=== PATIENT | female | born 1980 | race Caucasian/White ===

== ENCOUNTER 2021-10-22 09:50 | Day surgery (SDC) | payer OTHER ==
[~2021-10-22] VITALS: Ht 160 cm; Wt 54.5 kg
[~2021-10-22 09:50] MED LIST: METHIMAZOLE5 MG PO
--- NOTE | 2021-10-22 13:25 | NUR ---
RN TO ROOM DUE TO CALL LIGHT, PT UPDATED ON SURGERY. PT REPORT SHE IS ON HER PERIOD AND ASKED TO PLACE UNDERWEAR BACK ON. PAD AND WHIPES GIVEN AND PT CLEANED HERSELF. OR CHARGE AWARE. PT UP TO BATHROOM AND RETURNED TO BED. CALL LIGHT WITHIN REACH.
--- NOTE | 2021-10-22 16:11 | NUR ---
10/22/21 1611 Marisela Suarez 1606 PATIENT ARRIVES TO PACU RESTING WITH EYES CLOSED. DENIES NEEDS. RESP EVEN AND UNLABORED, MASK AT 6 LITERS.
--- NOTE | 2021-10-22 16:39 | NUR ---
RETURNED TO NO FAMILY HERE.
--- NOTE | 2021-10-27 15:09 | OR ---
[address] [place], [place] [address] Signed DATE OF OPERATION: 10/22/2021 SURGEON: Alex Zepeda MD The patient of Dr. Zepeda. PREOPERATIVE DIAGNOSES: Heavy menstrual bleeding, dysmenorrhea, and adenomyosis. POSTOPERATIVE DIAGNOSES: Heavy menstrual bleeding, dysmenorrhea, and adenomyosis. PROCEDURE: Total laparoscopic hysterectomy with bilateral salpingectomy and cystoscopy. FIELD TECH: Akbar Baer DO ANESTHESIA: General. ESTIMATED BLOOD LOSS: 20 mL. SPECIMEN: Uterus, both fallopian tubes. DRAINS: Sanabria to bladder. PACKING: None. FINDINGS: Normal cervix. Normal size and shape uterus with no adhesions. The left tube had normal fimbria, normal length and no adhesions with evidence of Falope Ring tubal ligation present. Left ovary is normal in size and shape without any evidence of endometriosis or adhesions. The right tube had normal fimbriated end, normal length with evidence of previous Falope ring tubal ligation. No adhesions. Right ovary is Electronically Signed By: ALEX ZEPEDA MD 10/27/21 1509 PATIENT NAME: JEREMIAH STEWARD OPERATIVE REPORT DATE OF : 80 REPORT #: [id number] PHYSICIAN: ALEX ZEPEDA MD PCP: PIA EDOUARD MD REPORT IS CONFIDENTIAL AND NOT TO BE RELEASED WITHOUT AUTHORIZATION [address] [address] Signed normal size and shape without any evidence of endometriosis or adhesions. The rest of the pelvis was free of any endometriosis or adhesions. COMPLICATIONS: None. DESCRIPTION OF PROCEDURE: The patient was brought to the operating room, placed in supine position. After adequate general anesthesia was obtained, she was placed in the dorsal lithotomy position, prepped and draped in usual sterile fashion. A Sanabria catheter was placed in the bladder. A speculum was placed in the vagina and the anterior lip of cervix grasped with an Allis clamp. The cervix was serially dilated and a [place] uterine manipulator carefully inserted through the cervix into the fundus of the uterus. The balloon was filled with sterile water. Allis clamp and weighted speculum were removed and the cervical cap slid up around the cervix and then the vaginal cup slid up against the cervical cap and tightened in place to hold the cervical cap against the cervix. Attention was then drawn to the abdomen. A small infraumbilical skin incision was made with a scalpel after injecting the area with 0.25% Marcaine with epinephrine. Subcutaneous tissue was then dissected with Metzenbaum scissors and the fascia identified, grasped with hemostats, elevated, nicked with Metzenbaum scissors. Retention stitches of 0 Vicryl suture placed above and below the incision. The abdominal musculature and peritoneum were opened with blunt dissection using finger. An S retractor was inserted into the incision and the Deedee cannula and sleeve entered the abdomen under direct visualization. The S retractor was removed. The trocar removed and the balloon on the sleeve was insufflated with air. The outer sleeve was slid down and attached just at the level of the skin and the two retention stitches attached to the outer sleeve. Carbon dioxide was used as distending medium. Laparoscope with video attachment entered the abdomen under direct visualization. The above findings were noted. On the left side, approximately 10 cm lateral to the midline, the abdominal wall was transilluminated to avoid any vessels and the skin injected with 0.25% Marcaine with epinephrine and then a small skin incision made with a scalpel. A 5 mm bladed trocar and sleeve entered the abdomen under direct visualization. The trocar was removed and the balloon of the sleeve filled with air. The trocar was removed and blunt grasper inserted. On the right side again approximately 10 cm lateral to the midline and just below the level of the umbilicus, the anterior abdominal wall was transilluminated, skin injected with 0.25% Marcaine with epinephrine and then a skin incision made with a scalpel. A Veress needle with expandable sleeve was then inserted into the abdomen under direct visualization. The Veress needle was removed and an expandable trocar with sleeve inserted through the expandable sleeve into the uterus under direct visualization. The trocar was removed and blunt grasper inserted. The above findings Electronically Signed By: ALEX ZEPEDA MD 10/27/21 1509 PATIENT NAME: JREEMIAH STEWARD OPERATIVE REPORT DATE OF : 80 REPORT #: [id number] PHYSICIAN: ALEX ZEPEDA MD PCP: PIA EDOUARD MD REPORT IS CONFIDENTIAL AND NOT TO BE RELEASED WITHOUT AUTHORIZATION [facility] [address] [place] [id number] Signed were noted. LigaSure bipolar [place] forceps were used for the dissection. Both fallopian tubes were removed by cauterizing and cutting along the mesosalpinx down the length of the tube to the area of the previous tubal ligation. Two tubes were then brought out through the right lateral port. The utero-ovarian ligaments were cauterized on each side in several places and then cut. On the left side, the round ligament was cauterized in several places and cut. The upper pedicle cauterized and cut and then the anterior and posterior leaves of the broad ligament individually cauterized and cut down to the cervical cap and along the cervical cap to the midline anterior and posterior. The exposed uterine vessels were then cauterized in several places and cut at the edge of the cervical cap which could be seen through the vaginal wall. The paracervical tissue was cleared off so that just the vaginal wall remained on the left side. On the right side, the round ligament was cauterized in several places and cut. Upper broad ligament cauterized and cut and then the individual leaves of the broad ligament cauterized and cut down towards the cervical cap joining the previous dissection in the midline anteriorly and posteriorly. The uterine vessels were then exposed and they were cauterized in several places and cut at the level of the cervical cap. The paracervical tissue was cauterized and cut again at the level of the cervical cap cleaning the vaginal wall of any further vessels. Sonicision was then brought in the operating field and placed through the laparoscope and the vaginal mucosa in the posterior cul-de-sac opened in the groove of the cervical cap using the Sonicision. The dissection was then taken posterior to anterior on the left side and then posterior to anterior on the right side meeting anteriorly in the midline, this removed the cervix and uterus from the vagina. Uterus was easily removed by removing the VCare uterine manipulator and then a glove filled sponge placed in the vagina, so that the abdomen could be re-insufflated. The pelvis was irrigated, suctioned, examined and noted to have good hemostasis, so the cuff was closed using the EndoStitch with barbed suture. Each stitch was placed from posterior to anterior starting at the right uterosacral ligament. The 1st bite through the posterior vaginal wall and then through the loop in the end of the barbed suture. The stitch was then placed through the anterior vaginal mucosa. This was continued across individually incorporating the posterior and then the anterior edges of the vaginal mucosa, making sure to incorporate the vaginal mucosa. This was taken all the way across until reaching the left uterosacral ligament where then the stitch was taken back more superficially towards the midline. The remaining suture was cut at the vaginal wall and the entire pelvis then irrigated, suctioned, examined and noted to have good hemostasis. All instruments were removed. The gas allowed to escape and the final sleeve removed. The infraumbilical fascial incision was closed using running stitch of 0 Vicryl suture. The two retention stitches were tied together for further support and the three skin incisions closed using subcuticular stitches of 4-0 Vicryl suture. The Sanabria catheter was removed from the bladder and then cystoscope with 70-degree lens was placed in the urethra and entered the bladder under direct visualization. Sterile water was used as distending medium and the bladder including the dome, both side simeon Electronically Signed By: ALEX ZEPEDA MD 10/27/21 1509 PATIENT NAME: JEREMIAH STEWARD OPERATIVE REPORT DATE OF : 80 REPORT #: [id number] PHYSICIAN: ALEX ZEPEDA MD PCP: PIA EDOUARD MD REPORT IS CONFIDENTIAL AND NOT TO BE RELEASED WITHOUT AUTHORIZATION [facility] [address] [place], [place] [address] Signed carefully examined showed no defects, no puckering, no suture. The ureteral orifices were identified and both sides showed good jets of urine coming into the bladder and the trigone also showed no defects, sutures or puckering. So, the bladder was drained and the cystoscope removed. Sanabria catheter was placed back in the bladder and the balloon filled with water. The patient tolerated the procedure well, went to recovery room in good condition. The sponge, needle, and instrument count were correct at the end of the procedure. The uterus with both fallopian tubes sent to Pathology for identification. Alex Zepeda MD MJB/MODL /[id number] cc: Pia Edouard MD Copies: PIA EDOUARD MD ~ Electronically Signed By: ALEX ZEPEDA MD 10/27/21 1509 PATIENT NAME: JEREMIAH STEWARD OPERATIVE REPORT DATE OF : 80 REPORT #: [id number] PHYSICIAN: ALEX ZEPEDA MD PCP: PIA EDOUARD MD REPORT IS CONFIDENTIAL AND NOT TO BE RELEASED WITHOUT AUTHORIZATION
--- NOTE | 2021-10-28 05:59 | PATH ---
[facility] [address] [place], [place] [address] Signed SPECIMEN(S): A UTERUS, CERVIX, BILATERAL TUBES SPECIMEN SOURCE: A. UTERUS, CERVIX, BILATERAL TUBES CLINICAL HISTORY: Adenomyosis, dysmenorrhea. FINAL PATHOLOGIC DIAGNOSIS: Uterus, cervix and bilateral fallopian tubes, hysterectomy and bilateral salpingectomy: - Cervix: - Benign squamous epithelium and endocervix. - Negative for dysplasia. - Endomyometrium: - Benign secretory endometrium with serosal adhesions. - Negative for hyperplasia and atypia. - Bilateral fallopian tubes: - Benign fimbria and fallopian tubes with paratubal cysts. DDF:hank:C2NR MICROSCOPIC EXAMINATION: Histologic sections of all submitted blocks are examined by light microscopy. These findings, together with the gross examination, support the pathologic diagnosis. GROSS DESCRIPTION: The specimen, labeled "HC, A," and designated on the requisition "uterus with cervix bilateral tubes," is received in formalin and consists of a uterus with attached cervix and 2 detached fimbriated fallopian tube segments. The two fimbriated fallopian tube segments are mccall-white purple and undesignated. The first fimbriated fallopian tubes segment is 2.2 cm long, 0.6 centimeters in diameter, and the lumen is occluded by the white, 0.4 cm diameter, 0.3 cm long beadlike device. Additionally the tube has multiple clear fluid-filled, smooth inner walled, paratubal cystic structures from less than 0.1 up to 0.3 cm in greatest dimension. An additional discrete mass/lesion is not grossly identified. The second tube is inked blue, 3.2 cm long, 0.6 cm in diameter, has a patent lumen, and multiple clear fluid-filled, smooth inner walled, paratubal cystic structures from less than 0.1 up to 0.3 PATIENT NAME: JEREMIAH STEWARD PATHOLOGY DATE OF : 80 REPORT #: [id number] PHYSICIAN: JS PATHOLOGY PCP: PIA CHAIDEZ MD REPORT IS CONFIDENTIAL AND NOT TO BE RELEASED WITHOUT AUTHORIZATION [facility] [address] [place], [place] [address] Signed cm in greatest dimension. The orientation of the uterus is grossly indeterminate. The uterus with attached cervix weighs 74.8 g and measures 7.9 x 5.7 x 4.2 cm. The uterine serosa is mccall-lockett, smooth, glistening. The ectocervical tissue is mccall-white to lockett, smooth, and occupies a 3.0 x 2.8 cm area. The external os is oval, patent, 1.2 cm in diameter. The internal os is patent and the cervical stroma is grossly unremarkable. The triangular endometrial cavity measures 4.4 x 2.6 cm. The mccall 2 dark red endometrium is markedly ragged, up to 0.7 cm thick, and without a discrete mass/lesion. The mccall, rubbery myometrium is up to 1.6 cm thick without a discrete mass/lesion. Additionally attached to the lateral portion of the uterus, within the connective tissue, is a second, 0.4 cm diameter, 0.3 cm long white beadlike device. Pneumatic Hoist Operator sections are submitted as follows: A1-A2 fallopian tubes including fimbria entirely A3-A4 cervix A5-A6 uterine wall AI (under the direct supervision of a pathologist) The Gross Description was prepared using a voice recognition system. The report was reviewed for accuracy; however, sound-alike word errors, addition and/or deletions may occur. If there is any question about this report, please contact Client Services. PERFORMING LABORATORY: The technical component was performed by [facility], [address] [place] [id number] ([employer] Services Director: Lizett Tate MD; CLIA# [id number]). Professional interpretation was performed by [facility], [address] [place] [address] ([employer] Director: Lizett Tate MD; CLIA# [id number]). Diagnostician: Doug Varma DO Pathologist Electronically Signed 10/27/2021 Copies: ~ PATIENT NAME: JEREMIAH STEWARD PATHOLOGY DATE OF : 80 REPORT #: [id number] PHYSICIAN: JS CUEVAS PCP: PIA CHAIDEZ MD REPORT IS CONFIDENTIAL AND NOT TO BE RELEASED WITHOUT AUTHORIZATION
== END 2021-10-22 17:46 | disposition home or self-care (01) ==
LOC: OPS → DS 09:50 → OPS 09:50
PROVIDERS: ATTEND General Practice
PROC: 0UT94ZZ Resection of Uterus, Percutaneous Endoscopic Approach (ICD-10-PCS; principal; 2021-10-22 13:05)
PROC: 0UT74ZZ Resection of Bilateral Fallopian Tubes, Percutaneous Endoscopic Approach (ICD-10-PCS; 2021-10-22 13:05)
DX: N80.0 Endometriosis of uterus (principal); N92.0 Excessive and frequent menstruation with regular cycle; N83.8 Other noninflammatory disorders of ovary, fallopian tube and broad ligament; N94.6 Dysmenorrhea, unspecified; F17.210 Nicotine dependence, cigarettes, uncomplicated
CPT/HCPCS: 00840; J0131; J0690; J1100; J1644; J1885; J2405; J2704; J3010; J3475; J7121